=== PATIENT | male | born 1985 | race Caucasian/White ===

== ENCOUNTER 2025-03-09 18:19 | Emergency (ER) | payer MEDICAID ==
[~2025-03-09] VITALS: Ht 167.6 cm; Wt 100.0 kg
[2025-03-09 18:20] VITALS: TEMP 36.8; O2SAT 100
[2025-03-09] MEDS ORDERED: LIDOCAINE HCL 1% 20ML VIAL INFIL ONE (19:30)
[2025-03-09 19:44] VITALS: O2SAT 100
[2025-03-09 20:13] VITALS: BP 164/70; PULSE 107; RESP 18
[2025-03-09] MEDS: KETOROLAC 15MG/ML VIAL IV ONE (20:13)
== END 2025-03-09 22:16 | disposition home or self-care (01) ==
LOC: ER 18:19
DX: S01.111A Laceration without foreign body of right eyelid and periocular area, initial encounter (principal); I10 Essential (primary) hypertension; Z88.0 Allergy status to penicillin; X58.XXXA Exposure to other specified factors, initial encounter; Y93.89 Activity, other specified; Y92.89 Other specified places as the place of occurrence of the external cause; Y99.8 Other external cause status
CPT/HCPCS: 99284; 96374; 12014; J1885; J2003